=== PATIENT | female | born 1975 | race African-American/Black ===

== ENCOUNTER 2021-07-18 09:52 | Emergency (ER) | payer OTHER ==
[2021-07-18 10:04] VITALS: BMI 28.3
[2021-07-18] MEDS ORDERED: DEXAMETHASONE SOD PHOSPHATE 10 MG/1 ML VIAL IVPUSH ONE (11:04)
[2021-07-18] MEDS ORDERED: DEXAMETHASONE SOD PHOSPHATE 10 MG/1 ML VIAL ONE (11:32)
[2021-07-18] MEDS ORDERED: ACETAMINOPHEN 1000 MG/100 ML BAG IVPB ONE (11:40)
[2021-07-18] MEDS ORDERED: SODIUM CHLORIDE 0.9% 500 ML INFUS.BAG IV ONE (11:40)
[2021-07-18] MEDS ORDERED: ACETAMINOPHEN INJECTION 100 ML IVPB ONE (12:05)
[2021-07-18 12:18] LABS: BASO % 0.6 % (0-2.0); EOS % 1.1 % (0-4.5); HEMOGLOBIN 9.5 GM/dL (10.7-15.3); LYMPH % 6.3 % (8-40); MCH 21.4 pg (25.7-33.7); MCHC 30.7 g/dl (32.0-36.0); MEAN CELL VOLUME 69.8 fl (80-96); MEAN PLT VOLUME 9.6 fl (7.5-11.1); PLATELET COUNT 376 10^3/uL (134-434); RBC 4.44 M/mm3 (3.60-5.2); WHITE BLOOD COUNT 12.2 K/mm3 (4.0-10.0)
[2021-07-18 12:22] LABS: VENOUS BASE EXCESS -2.8 mmol/L (-2-2); VENOUS O2 SATURATION 71.6 % (70-80); VENOUS PCO2 44.2 mmHg (38-52); VENOUS PH 7.335 (7.310-7.410)
[2021-07-18 12:37] LABS: INR 1.16 (0.83-1.09); PROTHROMBIN TIME (PATIENT) 13.4 SEC (9.7-13.0)
[2021-07-18 12:39] LABS: ACTIVATED PTT 26.1 SECONDS (25.2-36.5)
[2021-07-18 12:47] LABS: BLOOD UREA NITROGEN 18.8 mg/dL (7-18); CALCIUM 9.1 mg/dL (8.5-10.1)
[2021-07-18 12:51] LABS: CREATININE 0.8 mg/dL (0.55-1.3)
[2021-07-18 12:52] LABS: BILIRUBIN,TOTAL 0.5 mg/dL (0.2-1); TOT PROT 6.9 g/dl (6.4-8.2)
[2021-07-18 12:54] LABS: N-TERMINAL BNP 3191.4 pg/ml (5-125)
[2021-07-18] MEDS ORDERED: FUROSEMIDE 40 MG/4 ML INJECTABLE VIAL IVPUSH ONE (12:57)
[2021-07-18] MEDS ORDERED: FUROSEMIDE 40 MG/4 ML INJECTABLE VIAL ONE ×2 (13:10→13:22)
[2021-07-18] MEDS ORDERED: NITROGLYCERIN 25MG/D5W 250ML 25 MG/250 ML ML IVPB SCH (13:15)
[2021-07-18] MEDS ORDERED: NITROGLYCERIN 2% OINTMENT - 1GM PACKET TD ONE ×2 (13:21→13:47)
[2021-07-18 13:22] LABS: ANISOCYTOSIS 3+; MACROCYTOSIS 0; TARGET CELLS 1+
[2021-07-18] MEDS ORDERED: VANCOMYCIN 1,000 MG in DEXTROSE 5%-WATER - 250 ML IVPB ONE (13:47)
[2021-07-18] MEDS ORDERED: PIPERACILLIN/TAZOB 4.5 GM 4.5 GM in DEXTROSE 5%-WATER - 100 ML IVPB ONE (13:47)
[2021-07-18] MEDS ORDERED: PIPERACILLIN/TAZOB 4.5 GM 4.5 GM/100 ML BAG IVPB ONE (13:51)
[2021-07-18] MEDS ORDERED: VANCOMYCIN 1 GRAM (PRE-DOCKED) 1,000 MG/250 ML BAG IVPB ONE (13:52)
[2021-07-18] MEDS ORDERED: NITROGLYCERIN 25MG/D5W 250ML 25 MG/250 ML ML IVPB ONE (16:20)
[2021-07-18 16:32] VITALS: BP 167/103; PULSE 113; TEMP 98
== END 2021-07-18 16:55 | disposition short-term general hospital (02) ==
LOC: JER 09:52
DX: R06.02 Shortness of breath (principal); R05.1 Acute cough
CPT/HCPCS: 0241U-QW; 36415; 71045-TC-FY; 80053; 82553; 82803; 83605; 83880; 84484; 84703; 85025; 85610; 85730; 86850; 86900; 86901; 87040; 93005; 93010; 93306-TC; 99291; 99292; J1100